=== PATIENT | female | born 1965 | race Caucasian/White ===

== ENCOUNTER 2022-09-24 15:51 | Observation (INO) ==
[2022-09-24 16:39] LABS: Basophils % 0.6 % (0.0-0.8); Eosinophils # 0.1 10*3/uL (0.0-0.87); Eosinophils % 1.7 % (0.00-10.9); Hematocrit 41.8 VOL% (35.7-47.0); Hemoglobin 13.5 GM/DL (12.0-16.0); Immature Granulocytes % 0.4 %; Immature Granulocytes Absolute 0.02 #; Lymphocytes # 1.6 10*3/uL (1.4-4.0); Mean Corpuscular HGB Conc 32.3 GM/DL (32-36); Mean Corpuscular Volume 93.7 FL (87-102); Mean Platelet Volume 10.7 FL (9.6-12.0); Monocytes # 0.4 10*3/uL (0.11-0.8); Monocytes % 7.2 % (1.7-12.7); Neutrophils % 61.1 % (38.7-73.9); Platelet Count 195 T/CUMM (130-400); Red Blood Count 4.46 MC/CUMM (3.8-5.5); Red Cell Distribution Width 13.2 % (9.3-17.3); White Blood Count 5.4 T/CUMM (4-12)
[2022-09-24 16:42] LABS: Bilirubin,Urine Negative (Negative); Blood, Urine Trace mg/dL (Negative); Glucose,Urine (UA) Negative (Negative); Ketones,Urine Negative (Negative); Nitrite,Urine Negative (Negative); Protein,Urine Negative (Negative); Urine Appearance Clear (Clear); Urine Color Yellow (Yellow); Urine Specific Gravity 1.015 (1.001-1.035); Urine Urobilinogen 0.2 eU/dL (<2.0)
[2022-09-24 16:48] LABS: Amorphous Crystals,Urine Occasional /HPF (Few); RBC,Urine <1 /HPF (0-4); Squamous Epithelial Cell,Urine Occasional /HPF (0-10)
[2022-09-24 17:05] LABS: Acetaminophen < 2.0 UG/ML (10-30)
[2022-09-24 17:15] LABS: Alanine Aminotransferase 14 U/L (13-56); Albumin 4.4 G/DL (3.4-5.0); Alkaline Phosphatase 60 U/L (45-117); Aspartate Amino Transferase 10 U/L (0-37); Blood Urea Nitrogen 10 MG/DL (7-18); Calcium 9.3 MG/DL (8.5-10.1); Carbon Dioxide 27 MMOL/L (21-32); Chloride 112 MMOL/L (98-107); Glucose 108 MG/DL (74-106); Osmolality,Calculated 289.6 MOS/KG (273-304); Potassium 3.4 MMOL/L (3.5-5.1); Sodium 146 MMOL/L (136-145); Total Protein 7.2 G/DL (6.4-8.2)
[2022-09-24 17:26] LABS: Barbiturates Screen,Urine Negative (Negative); Benzodiazepines Screen,Urine Negative (Negative); Cannabinoid Screen,Urine Negative (Negative); Opiate Screen,Urine Negative (Negative); Phencyclidine Screen,Urine Negative (Negative)
[2022-09-24] MEDS ORDERED: SODIUM CHLORIDE 0.9% 1,000 ML IV STA (17:33)
[2022-09-24] MEDS ORDERED: PROPRANOLOL 10 MG TABLET PO PRN (18:45)
[2022-09-24] MEDS ORDERED: hydrALAZINE 20 MG/1 ML VIAL IV PRN (18:48)
[2022-09-24] MEDS ORDERED: ONDANSETRON 4 MG/2 ML VIAL IV PRN (18:48)
[2022-09-24] MEDS ORDERED: POTASSIUM CHLORIDE 20 MEQ TABLET PO STA (18:51)
[2022-09-24] MEDS ORDERED: ACETAMINOPHEN 325 MG TABLET PO PRN (18:52)
[2022-09-24 19:20] LABS: Free T4 (Free Thyroxine) 0.85 NG/DL (0.76-1.46)
[2022-09-24 20:12] LABS: Amorphous Crystals,Urine Occasional /HPF (Few); Bilirubin,Urine Negative (Negative); Blood, Urine Negative (Negative); Glucose,Urine (UA) Negative (Negative); Ketones,Urine Negative (Negative); Mucus,Urine Occasional /LPF (Occasional); Nitrite,Urine Negative (Negative); Protein,Urine Negative (Negative); Urine Appearance Clear (Clear); Urine Color Yellow (Yellow); Urine Specific Gravity 1.015 (1.001-1.035); Urine Urobilinogen 0.2 eU/dL (<2.0)
[2022-09-24] MEDS: DIVALPROEX 500 MG TABLET PO SCH (21:20)
[2022-09-24] MEDS ORDERED: ALBUTEROL 2.5 MG/3 ML NEB RESP TX PRN (21:21)
[2022-09-24] MEDS: SODIUM CHLORIDE 0.45% 1,000 ML IV SCH (21:45)
[2022-09-25] MEDS: SODIUM CHLORIDE 0.45% 1,000 ML IV SCH ×2 (05:40→13:56)
[2022-09-25] MEDS: LEVOTHYROXINE 175 MCG TABLET PO SCH ×2 (05:40→08:57)
[2022-09-25 06:06] LABS: Basophils % 0.5 % (0.0-0.8); Eosinophils # 0.1 10*3/uL (0.0-0.87); Eosinophils % 2.2 % (0.00-10.9); Hematocrit 37.5 VOL% (35.7-47.0); Hemoglobin 12.1 GM/DL (12.0-16.0); Immature Granulocytes % 0.4 %; Immature Granulocytes Absolute 0.02 #; Lymphocytes # 2.2 10*3/uL (1.4-4.0); Lymphocytes % 40.9 % (21.3-54.2); Mean Corpuscular HGB Conc 32.3 GM/DL (32-36); Mean Corpuscular Volume 94.2 FL (87-102); Mean Platelet Volume 10.4 FL (9.6-12.0); Monocytes # 0.5 10*3/uL (0.11-0.8); Monocytes % 8.4 % (1.7-12.7); Neutrophils % 47.6 % (38.7-73.9); Platelet Count 178 T/CUMM (130-400); Red Blood Count 3.98 MC/CUMM (3.8-5.5); Red Cell Distribution Width 13.2 % (9.3-17.3); White Blood Count 5.5 T/CUMM (4-12)
[2022-09-25 06:29] LABS: Albumin 3.3 G/DL (3.4-5.0); Bilirubin,Total 0.6 MG/DL (0.20-1.00); Calcium 8.6 MG/DL (8.5-10.1); Osmolality,Calculated 289.4 MOS/KG (273-304); Potassium 3.2 MMOL/L (3.5-5.1); Risk Ratio 2.58; Total Protein 5.8 G/DL (6.4-8.2); VLDL Cholesterol 18.6 MG/DL
[2022-09-25] MEDS ORDERED: POTASSIUM CHLORIDE 20 MEQ TABLET PO ONE (08:52)
[2022-09-25] MEDS: PANTOPRAZOLE 40 MG TABLET PO SCH (08:57)
[2022-09-25] MEDS: NICOTINE 21 MG/24 HR PATCH TRANSDERM SCH (08:58)
[2022-09-25] MEDS: LIDOCAINE 5% PATCH TRANSDERM SCH (08:59)
[2022-09-25] MEDS ORDERED: LEVOTHYROXINE 150 MCG TABLET PO SCH (09:00)
[2022-09-25] MEDS ORDERED: GLUCAGON 1 MG VIAL IM PRN (11:46)
[2022-09-25] MEDS ORDERED: DEXTROSE 10% 250 ML BAG IV PRN (11:46)
[2022-09-25] MEDS: DIVALPROEX 500 MG TABLET PO SCH (20:24)
[2022-09-26 04:40] VITALS: BP 145/84
[2022-09-26] MEDS: LEVOTHYROXINE 175 MCG TABLET PO SCH (05:01)
[2022-09-26] MEDS ORDERED: POTASSIUM CHLORIDE 20 MEQ TABLET PO ONE ×2 (07:18→08:03)
[2022-09-26] MEDS: SODIUM CHLORIDE 0.45% 1,000 ML IV SCH ×2 (08:21→08:22)
[2022-09-26] MEDS: LIDOCAINE 5% PATCH TRANSDERM SCH (08:29)
[2022-09-26] MEDS: NICOTINE 21 MG/24 HR PATCH TRANSDERM SCH (08:29)
[2022-09-26] MEDS: PANTOPRAZOLE 40 MG TABLET PO SCH (08:30)
[2022-09-26 08:59] LABS: Calcium 9.3 MG/DL (8.5-10.1); Osmolality,Calculated 285.8 MOS/KG (273-304); Potassium 4.1 MMOL/L (3.5-5.1)
[2022-09-26] MEDS ORDERED: amLODIPine 5 MG TABLET PO SCH (09:00)
== END 2022-09-26 11:27 | disposition home or self-care (01) ==
LOC: N.ED 15:51 → N.TELES 15:51
PROVIDERS: ADMIT Internal Medicine; ATTEND Internal Medicine